=== PATIENT | female | born 1950 | race Native Hawaiian/Other Pacific Islander ===

== ENCOUNTER 2016-12-01 10:11 | Outpatient (CLI) | payer OTHER ==
[~2016-12-01 10:11] MED LIST: ALPR0.5T24 PO; AMBIEN5 MG PO; ASA LOW DOSE81 MG PO; BENADRYL25 M1 PO; DIGOXIN0.125 MG PO; DIGOXIN0.25 MG PO; DIOVAN320 MG PO; DULO60CA2 PO; FURO40TA93 PO; GABA300C2 PO; GLIM2TAB PO; HYDR-2748 PO; INSU100I2 SC; IRBESARTAN150 MG PO; JANUVIA100 MG PO; LOSA50TA PO; METO10TA26 PO; MICRO-K10 MEQ PO; NEURONTIN 100M100 MG PO; NEURONTIN800 MG PO; PACERONE200 MG PO; PRADAXA150 MG PO; PROM25TA52 PO; REQUIP1 MG PO; TEMA30CA18 PO; TIROSINT25 MCG PO; TIZA4TAB5 PO; TRAM50TA PO
[2016-12-01 10:26] LABS: PLATELET COUNT 194 K/uL (152-353)
[2016-12-01 11:37] LABS: POTASSIUM 4.1 mmol/L (3.6-5.2)
== END 2016-12-01 23:34 | disposition home or self-care (01) ==
LOC: LAB 10:11
PROVIDERS: Internal Medicine
DX: E11.9 Type 2 diabetes mellitus without complications (principal); R53.81 Other malaise
CPT/HCPCS: 80053; 80061; 80162; 81000; 83036; 84439; 84443; 85027

== ENCOUNTER 2017-03-02 13:17 | Inpatient (IN) | payer OTHER ==
[~2017-03-02] VITALS: Ht 152.4 cm; Wt 74.0 kg
[2017-03-02 16:31] VITALS: BP 159/48; TEMP 97.3; BMI 31.8
[2017-03-02 16:45] LABS: PLATELET COUNT 328 K/uL (152-353)
[2017-03-02 17:04] LABS: POTASSIUM 4.8 mmol/L (3.6-5.2)
[2017-03-02 20:00] VITALS: BP 144/50; TEMP 98.1
--- NOTE | 2017-03-02 20:49 | NUR ---
TYLENOL EXTRA STRENGTH 2 TABS GIVEN FOR HEADACHE. PT SITTING AT SIDE OF BED EATING DINNER.
--- NOTE | 2017-03-02 20:52 | NUR ---
PT TO BATHROOM. UA SPECIMENT OBTAINED.
--- NOTE | 2017-03-02 22:56 | NUR ---
PT RESTING WITH EYES CLOSED. AWAKENED WHEN NURSE IN ROOM TO HANG PIPERCILLIN. PT VOICES NO COMPLAINTS AT THIS TIME.
[2017-03-03] VITALS: BP 125/48; TEMP 99.3
[2017-03-03 04:00] VITALS: BP 115/36; TEMP 98.9
[2017-03-03 04:41] LABS: PLATELET COUNT 279 K/uL (152-353)
[2017-03-03 04:54] LABS: POTASSIUM 4.4 mmol/L (3.6-5.2)
--- NOTE | 2017-03-03 06:37 | NUR ---
PT AWAKENED FOR AM MEDICATION. PT STATES I GOT SOME GOOD REST. VOICES NO COMPLAINTS AT THIS TIME.
[2017-03-03 08:00] VITALS: BP 121/36; TEMP 98.3
[2017-03-03 12:00] VITALS: BP 132/47; TEMP 98.2
--- NOTE | 2017-03-03 15:35 | NUR ---
MRI REPORT OF FOOT SENT TO DR AYERS AWAITING ANY NEW ORDERS
--- NOTE | 2017-03-03 15:37 | NUR ---
DR JONES HERE TO SEE PATIENT MRI REPORT GIVEN TO HIM.
[2017-03-03 16:00] VITALS: BP 128/47; TEMP 98.6
--- NOTE | 2017-03-03 17:22 | NUR ---
iv site in left ac with edema noted patient c/o pain to area. site dc changed to RFA WITH 22G JELCO X2 2 ATTEMPTS
[2017-03-03 20:00] VITALS: BP 151/55; TEMP 97.6
[2017-03-04] VITALS: BP 131/43; TEMP 98.5
[2017-03-04 04:00] VITALS: BP 123/46; TEMP 98.8
[2017-03-04 04:50] LABS: PLATELET COUNT 267 K/uL (152-353)
[2017-03-04 04:58] LABS: POTASSIUM 4.5 mmol/L (3.6-5.2)
[2017-03-04 08:00] VITALS: BP 124/46; TEMP 97.8
--- NOTE | 2017-03-04 09:49 | NUR ---
PT IN SHOWER AT THIS TIME
[2017-03-04 12:00] VITALS: BP 139/57; TEMP 98.3
[2017-03-04 16:00] VITALS: BP 157/43; TEMP 98
[2017-03-04 20:00] VITALS: BP 160/44; TEMP 97.8
[2017-03-05] VITALS (11 sets, daily range): BP systolic 101–174; BP diastolic 41–57; TEMP 97.6–99.4
--- NOTE | 2017-03-05 04:46 | NUR ---
03/04/17 AT 2118PT INFORMED THAT SHE IS NPO AFTER MIDNIGHT DUE TO SURGERY IN THE MORNING, PT ACKNOWLEDGES UNDERSTANDING.
[2017-03-05 05:08] LABS: POTASSIUM 4.7 mmol/L (3.6-5.2)
[2017-03-05 05:16] LABS: PLATELET COUNT 318 K/uL (152-353)
--- NOTE | 2017-03-05 09:20 | NUR ---
ANESTHESIA IN TO TALK WITH PT ABOUT PROCEDURE.
--- NOTE | 2017-03-05 09:45 | NUR ---
PT TO OR VIA BED WITH NAD.
--- NOTE | 2017-03-05 11:35 | NUR ---
PT BACK INTO ROOM VIA BED FROM OR. PT AOX4. PT SET UP FOR FREQUENT V/S. WOUND VAC INTACT AND RUNNING AT 125MMHG.
[2017-03-06 00:16] VITALS: BP 142/44; TEMP 98.9
[2017-03-06 07:38] VITALS: BP 108/61; TEMP 98.9
[2017-03-06 09:08] LABS: PLATELET COUNT 257 K/uL (152-353)
[2017-03-06 09:15] LABS: POTASSIUM 4.8 mmol/L (3.6-5.2)
[2017-03-06 11:45] VITALS: BP 150/45; TEMP 99.3
[2017-03-06 16:00] VITALS: BP 134/67; TEMP 98.6
--- NOTE | 2017-03-06 19:21 | NUR ---
1530 Dressing to both LE's changed with normal saline and dry sterile gauze. Pressure sore noted to proximal aspect of right ankle approx. 4 cm x 4 cm. Pressure sores x 2 noted to anterior aspect of left LE. One measured 2 cm x 3 cm. The second sore measures 2 cm x 4 cm. Another sore on the lateral side of the Rt. LE measures 2.25 cm x .75 cm. All sores listed are stage 2 with nor drainage noted from wounds. Wound vac intact to Great Lt. toe and low intensity continous suction at 125 mmHg noted. Small amount of bright red drainage noted in collection chamber.
[2017-03-06 20:09] VITALS: BP 137/62; TEMP 98.1
[2017-03-07 00:24] VITALS: BP 133/58; TEMP 98.5
[2017-03-07 04:00] VITALS: BP 130/72; TEMP 98.6
[2017-03-07 04:15] LABS: PLATELET COUNT 268 K/uL (152-353)
[2017-03-07 04:20] LABS: POTASSIUM 4.9 mmol/L (3.6-5.2)
--- NOTE | 2017-03-07 07:30 | NUR ---
AM ASSESSMENT COMPLETE. WOUND VAC OFF AT THIS TIME ACCORDING TO [employer] CONSULTANT NURSE, WILL ASSESS
[2017-03-07 08:00] VITALS: BP 154/69; TEMP 98.2
--- NOTE | 2017-03-07 11:41 | NUR ---
1030 OUTERMOST FILM FROM WOUND VAC REMOVED AT THIS TIME. NO KNIKED PLACES NOTED ON TUBING. VERY SMALL PIECE OF SPONGE ABLE TO BE VISUALIZED. APPROX 1/4IN PC OF SPONGE NOTED TO LEFT TOP. SUCTION NOTED TO BE ON SKIN. SUCTION REMOVED. UNABLE TO BE RPLACED AT THIS TIME DUE TO AMT OF SPONGE VISUALIZED. WOUND NOTED TO BE DRAINING SEROSANGUINEOUS FLUID NOTED TO WOUND . WOUND COVERED WITH ABD PAD AND WRAPPED WITH LEILA. 1040 DR JONES CALLED AND REPORTED THAT WOUND VAC REPORTED TO BE TURNED OFF ON PRIOR SHIFT. EXPLAINED THAT WOUND VAC BROKE DOWN UNABLE TO RECONNECT DUE TO AMT OF SPONGE. PER MD LEAVE SPONGE IN PLACE AND KEEP COVERED UNTIL MD ARRIVES. PT INFORMED AND VERBALZIED UNDERSTANDING
[2017-03-07 11:42] VITALS: BP 142/55; TEMP 98.1
--- NOTE | 2017-03-07 14:00 | NUR ---
DR AYERS AT BS
--- NOTE | 2017-03-07 14:55 | NUR ---
PT RESTING ON L SIDE, RESP 18, NO DISTRESS NOTED. L FOOT ELEVATED ON PILLOW
[2017-03-07 16:00] VITALS: BP 150/60; TEMP 98.1
[2017-03-07 19:52] VITALS: BP 156/73; TEMP 97.7
[2017-03-08] VITALS (7 sets, daily range): BP systolic 137–156; BP diastolic 53–79; TEMP 97.8–98.3; BMI 26.0
[2017-03-08 06:11] LABS: PLATELET COUNT 278 K/uL (152-353)
[2017-03-08 06:12] LABS: POTASSIUM 4.6 mmol/L (3.6-5.2)
--- NOTE | 2017-03-08 10:24 | NUR ---
DR. JONES IN TO SEE PT'S WOUNDS. DR. JONES REMOVED WOUND VAC SPONGE FROM LEFT GREAT TOE. DR. JONES THEN PACKED WOUND WITH 4X4 NS DAMP TO DRY AND WRAPPED WITH LEILA. DR. JONES WILL TAKE PT BACK TO OR TOMORROW TO POTENTIALLY CLOSE WOUND. RIGHT ANKLE WOUND CLEANED WITH HIBILENS THEN COVERED WITH 4X4 AND WRAPPED WITH LEILA. MEASUREMENTS IN WOUND ASSESSMENT. PT TOLERATED WELL.
--- NOTE | 2017-03-08 17:00 | NUR ---
DIGOXIN ORDER BY PHYSICIAN AND HELD DUE TO AP 55.
--- NOTE | 2017-03-08 17:15 | NUR ---
MD ORDERS DIGOXIN TO BE GIVEN NOW AND STATES HE IS AWARE OF THE PT'S AP BEING 55.
--- NOTE | 2017-03-08 17:45 | NUR ---
HL TO LEFT UNDER ARM HAD SMALL AMOUNT OF EDEMA TO AREA. D/C'D
[2017-03-09] VITALS (10 sets, daily range): BP systolic 101–164; BP diastolic 42–80; TEMP 97.8–98.7
[2017-03-09 05:08] LABS: PLATELET COUNT 300 K/uL (152-353)
[2017-03-09 05:22] LABS: POTASSIUM 4.6 mmol/L (3.6-5.2); SODIUM 138 mmol/L (136-145)
--- NOTE | 2017-03-09 10:51 | NUR ---
SPOKE WITH DR JONES REGARDING BENADRYL FOR ITCHING. STATED DISCUSS WITH ANESTHESIA. ANESTHESIA STATED WOULD COME SEE PATIENT THEN OK TO GIVE BENADRYL 25MG IVP.
[2017-03-10 00:17] VITALS: BP 144/56; TEMP 98.1
[2017-03-10 04:00] VITALS: BP 157/70; TEMP 99
[2017-03-10 06:31] LABS: PLATELET COUNT 282 K/uL (152-353)
[2017-03-10 06:36] LABS: POTASSIUM 4.3 mmol/L (3.6-5.2); SODIUM 137 mmol/L (136-145)
[2017-03-10 08:00] VITALS: BP 149/49; TEMP 97.8
--- NOTE | 2017-03-10 10:18 | NUR ---
PATIENT HAD COBAN TO LEFT FOOT WAS VERT TIGHT AND PATIENT STATED IT WAS UNCOMFORTAABLE. REMOVED AND LEILA APPILED
[2017-03-10 11:37] VITALS: BP 170/55; TEMP 97.6
--- NOTE | 2017-03-10 14:04 | NUR ---
DR JONES HER REMOVED IODAFOAM TO LEFT TO AREA REPACLED BY HIM WITH SAME. CLEANED WITH HIBICLENS REAPPLED 4X4 AND SECURED WITH CLING. NO ODOR OR DRAIN AGE NOTED TO AREA
[2017-03-10 16:00] VITALS: BP 166/67; TEMP 98
--- NOTE | 2017-03-10 19:43 | NUR ---
ROUNDED ON PATIENT AT THIS TIME. PT IN BED TALKING ON TELEPHONE. TECH ALSO AT THE BEDSIDE GETTING VITAL SIGNS. SHIFT ASSESSMENT DONE AT THIS TIME. PT C/O OF ETHAN LE PAIN. PT VOICES NO OTHER COMPLAINTS. BED IS LOCKED AND IN LOWEST POSITION WITH SIDE RAILS UP X2. CALL HANDLEY IS WITHIN REACH. WILL CONTINUE TO MONITOR.
[2017-03-10 19:54] VITALS: BP 125/73; BP 160/55; TEMP 97.9
--- NOTE | 2017-03-10 20:08 | NUR ---
HYDROCODONE 5/325 PO ADMINISTERED AT THIS TIME FOR ETHAN LE PAIN 06/17. PT VOICES NO OTHER COMPLAINTS AT THIS TIME. WILL CONTINUE TO MONITOR.
--- NOTE | 2017-03-10 21:10 | NUR ---
ROUNDED ON PATIENT AT THIS TIME. PT IS IN BED AWAKE, ALERT, AND ORIENTED. PT STATES PAIN HAS DECREASED FROM PREVIOUS LEVEL OF 8/10 TO 5/10. PT VOICES NO OTHER COMPLAINTS AT THIS TIME. BED IS LOCKED AND IN LOWEST POSITION WITH SIDE RAILS UP X2. CALL HANDLEY IS WITHIN REACH. WILL CONTINUE TO MONITOR.
--- NOTE | 2017-03-10 22:11 | NUR ---
ALL SCHEDULED MEDS ADMINISTERED AT THIS TIME. PT TOLERATED WELL. PT VOICES NO COMPLAINTS AT THIS TIME. WILL CONTINUE TO MONITOR.
--- NOTE | 2017-03-11 00:11 | NUR ---
ROUNDED ON PATIENT AT THIS TIME - PATIENT SITTING UP ON SIDE OF BED. NAD NOTED. PT VOICES NO COMPLAINTS AT THIS TIME. WILL CONTINUE TO MONITOR.
[2017-03-11 00:27] VITALS: BP 145/64; TEMP 98.8
--- NOTE | 2017-03-11 03:30 | NUR ---
PT RESTING WITH EYES CLOSED. NAD NOTED. WILL CONTINUE TO MONITOR.
[2017-03-11 04:00] VITALS: BP 157/60; TEMP 98
[2017-03-11 05:25] LABS: PLATELET COUNT 299 K/uL (152-353)
[2017-03-11 06:05] LABS: POTASSIUM 4.3 mmol/L (3.6-5.2)
--- NOTE | 2017-03-11 06:25 | NUR ---
ROUNDED ON PT - PT IN BED RESTING WITH EYES CLOSED BUT IS EASILY AROUSED. NAD NOTED. PT VOICES NO COMPLAINTS. WILL CONTINUE TO MONITOR.
[2017-03-11 07:49] VITALS: BP 152/65; TEMP 97.9
[2017-03-11 12:00] VITALS: BP 159/66; TEMP 98.4
--- NOTE | 2017-03-11 14:45 | NUR ---
IV D/C'd. NO REDNESS OR EDEMA OBSERVED. DISCHARGE INSTRUCTION SIGNED AND GIVEN. Pt. EXIT OUT OF ER ENTRANCE VIA W/C.
== END 2017-03-11 14:45 | disposition home or self-care (01) | DRG 617 ==
LOC: MRI 13:17 → MED/SURG 15:11 → UNDODEPCLI 03-03 22:40 → MED/SURG 03-11 14:45
PROVIDERS: Emergency Medicine; Internal Medicine; ADMIT Internal Medicine
PROC: 0JBQ0ZZ Excision of Right Foot Subcutaneous Tissue and Fascia, Open Approach (ICD-10-PCS; principal; 2017-03-05)
PROC: 0Y6Q0Z0 Detachment at Left 1st Toe, Complete, Open Approach (ICD-10-PCS; 2017-03-05)
PROC: 0JDR3ZZ Extraction of Left Foot Subcutaneous Tissue and Fascia, Percutaneous Approach (ICD-10-PCS; 2017-03-09)
DX: E11.69 Type 2 diabetes mellitus with other specified complication (principal); M86.172 Other acute osteomyelitis, left ankle and foot; L97.319 Non-pressure chronic ulcer of right ankle with unspecified severity; E11.621 Type 2 diabetes mellitus with foot ulcer; L97.529 Non-pressure chronic ulcer of other part of left foot with unspecified severity; I12.9 Hypertensive chronic kidney disease with stage 1 through stage 4 chronic kidney disease, or unspecified chronic kidney disease; N18.3 Chronic kidney disease, stage 3 (moderate); I73.89 Other specified peripheral vascular diseases; I48.2 Chronic atrial fibrillation; Z79.01 Long term (current) use of anticoagulants; E83.42 Hypomagnesemia; J44.9 Chronic obstructive pulmonary disease, unspecified; M15.8 Other polyosteoarthritis; Z79.4 Long term (current) use of insulin
CPT/HCPCS: 36415; 80048; 80053; 80162; 80202; 81000; 82948; 83735; 85027; 85651; 86140; 87070; 87077; 87186; 87205; 93005; 96372; J0744; J1170; J1200; J1644; J2001; J2250; J2270; J2543; J2704; J3010

== ENCOUNTER 2017-03-26 15:10 | Inpatient (IN) | payer OTHER ==
[~2017-03-26] VITALS: Ht 152.4 cm; Wt 66.4 kg
[2017-03-26 17:08] LABS: PLATELET COUNT 218 K/uL (152-353)
[2017-03-26 17:46] LABS: POTASSIUM 4.4 mmol/L (3.6-5.2)
[2017-03-26 20:00] VITALS: BP 145/68; TEMP 98.6
[2017-03-26 20:05] VITALS: BP 129/40; TEMP 97.8; Ht 152.4 cm; Wt 66.4 kg
[2017-03-27] VITALS: BP 128/48; TEMP 98.5
[2017-03-27 04:00] VITALS: BP 142/48; TEMP 97.8
[2017-03-27 07:53] LABS: PLATELET COUNT 176 K/uL (152-353)
[2017-03-27 08:00] VITALS: BP 126/49; TEMP 97.8
[2017-03-27 12:17] VITALS: BP 156/48; TEMP 97.9
[2017-03-27 16:21] VITALS: BP 143/44; TEMP 98.6
[2017-03-27 20:00] VITALS: BP 146/50; TEMP 98.8
[2017-03-28] VITALS (7 sets, daily range): BP systolic 121–187; BP diastolic 45–86; TEMP 97.6–98.9
[2017-03-28 07:12] LABS: PLATELET COUNT 186 K/uL (152-353)
[2017-03-28 07:17] LABS: POTASSIUM 4.2 mmol/L (3.6-5.2)
[2017-03-29 04:00] VITALS: BP 102/48; TEMP 98.8
[2017-03-29 06:13] LABS: PLATELET COUNT 201 K/uL (152-353)
[2017-03-29 06:28] LABS: POTASSIUM 4.4 mmol/L (3.6-5.2)
[2017-03-29 07:59] VITALS: BP 118/49; BP 149/64; TEMP 98.2
[2017-03-29 12:00] VITALS: BP 111/57; TEMP 98.1
[2017-03-29 16:00] VITALS: BP 149/50; TEMP 98.4
== END 2017-03-29 17:30 | disposition home or self-care (01) | DRG 552 ==
LOC: MED/SURG 15:10
PROVIDERS: Emergency Medicine; ADMIT Student in an Organized Health Care Education/Training Program
DX: S22.071A Stable burst fracture of T9-T10 vertebra, initial encounter for closed fracture (principal); W10.8XXA Fall (on) (from) other stairs and steps, initial encounter; Z91.81 History of falling; Y93.89 Activity, other specified; Y92.89 Other specified places as the place of occurrence of the external cause; D64.89 Other specified anemias; E11.9 Type 2 diabetes mellitus without complications; Z79.4 Long term (current) use of insulin; R60.0 Localized edema; E88.09 Other disorders of plasma-protein metabolism, not elsewhere classified; I48.91 Unspecified atrial fibrillation; I10 Essential (primary) hypertension; K21.9 Gastro-esophageal reflux disease without esophagitis
CPT/HCPCS: 36415; 80048; 80053; 80162; 82272; 82550; 82570; 82948; 83605; 83735; 83880; 84300; 84443; 84484; 84560; 85027; 87040; 93005; 94640; 94664; 94760; 96372; J1885; J1956; J2360; J2550; J3490

== ENCOUNTER 2017-04-08 16:53 | Outpatient (CLI) | payer OTHER ==
[2017-04-08 17:20] LABS: POTASSIUM 4.9 mmol/L (3.6-5.2)
== END 2017-04-08 19:21 | disposition home or self-care (01) ==
LOC: LAB 16:53
PROVIDERS: Internal Medicine Cardiovascular Disease
DX: I10 Essential (primary) hypertension (principal); M79.89 Other specified soft tissue disorders
CPT/HCPCS: 80048; 83880

== ENCOUNTER 2017-04-09 11:02 | Outpatient (CLI) | payer OTHER | END 2017-04-09 12:15 | disposition home or self-care (01) | LOC: US 11:02 → LAB 11:02 → US 12:15 | DX: I10 Essential (primary) hypertension (principal); I50.9 Heart failure, unspecified; E11.9 Type 2 diabetes mellitus without complications | CPT/HCPCS: 83880 ==

== ENCOUNTER 2017-06-03 14:32 | Outpatient (CLI) | payer OTHER ==
[2017-06-07] MEDS ORDERED: GABA300C2 PO (12:37)
[2017-06-07] MEDS ORDERED: FERROUS SULF325 MG PO (12:38)
[2017-06-07] MEDS ORDERED: FERROUS SULF325 M1 PO (12:38)
[2017-06-07] MEDS ORDERED: GRALISE600 MG PO (12:38)
[2017-06-07] MEDS ORDERED: BUMETANIDE1 MG PO (12:39)
[2017-06-07] MEDS ORDERED: POT CHLORIDE10 MEQ PO (12:39)
[2017-06-07] MEDS ORDERED: HYDR-3182 PO (12:41)
[2017-06-07] MEDS ORDERED: AMIODARONE HCL100 MG PO (12:42)
[2017-06-07] MEDS ORDERED: TIROSINT75 MCG PO (12:43)
== END 2017-06-03 14:42 | disposition short-term general hospital (02) ==
LOC: AMB 14:32
DX: R41.82 Altered mental status, unspecified (principal)
CPT/HCPCS: A0425; A0429

== ENCOUNTER 2017-06-14 12:11 | Outpatient (CLI) | payer OTHER ==
[~2017-06-14 12:11] MED LIST changes: +AMIODARONE HCL100 MG PO; +BUMETANIDE1 MG PO; +FERROUS SULF325 M1 PO; +FERROUS SULF325 MG PO; +GRALISE600 MG PO; +HYDR-3182 PO; +POT CHLORIDE10 MEQ PO; +TIROSINT75 MCG PO
== END 2017-06-14 13:18 | disposition short-term general hospital (02) ==
LOC: AMB 12:11
DX: A41.89 Other specified sepsis (principal); J18.8 Other pneumonia, unspecified organism; I21.4 Non-ST elevation (NSTEMI) myocardial infarction; I50.23 Acute on chronic systolic (congestive) heart failure; N39.0 Urinary tract infection, site not specified; M62.82 Rhabdomyolysis; N17.8 Other acute kidney failure; B95.2 Enterococcus as the cause of diseases classified elsewhere; R55 Syncope and collapse; E11.9 Type 2 diabetes mellitus without complications; I10 Essential (primary) hypertension; K14.0 Glossitis; L98.8 Other specified disorders of the skin and subcutaneous tissue; B95.61 Methicillin susceptible Staphylococcus aureus infection as the cause of diseases classified elsewhere
CPT/HCPCS: A0425; A0427

== ENCOUNTER 2017-09-07 14:34 | Inpatient (IN) | payer OTHER ==
[2017-09-08 12:00] LABS: PLATELET COUNT 165 K/uL (152-353)
[2017-09-08 12:36] LABS: POTASSIUM 3.4 mmol/L (3.6-5.2)
== END 2017-09-08 13:05 | disposition still patient (30) ==
LOC: PAVB 14:34
PROVIDERS: ADMIT Internal Medicine
DX: M62.81 Muscle weakness (generalized) (principal); R13.12 Dysphagia, oropharyngeal phase; R26.9 Unspecified abnormalities of gait and mobility; Z87.440 Personal history of urinary (tract) infections
CPT/HCPCS: 80053; 83036; 83540; 84443; 85027; 87081

== ENCOUNTER 2017-09-08 14:16 | Inpatient (IN) | payer OTHER ==
[2017-09-22] MEDS ORDERED: ASCO500T18 PO (16:13)
[2017-09-22] MEDS ORDERED: MULTIVITAMI1 OR (16:13)
[2017-09-22] MEDS ORDERED: ZINC220C4 PO (16:14)
[2017-09-22] MEDS ORDERED: MELATONIN10 M2 PO (16:15)
[2017-09-22] MEDS ORDERED: CELEXA40 MG PO (16:16)
[2017-09-22] MEDS ORDERED: PROBIOTIC1 TAB PO (16:17)
[2017-09-22] MEDS ORDERED: GABA100C2 PO (16:17)
[2017-09-22] MEDS ORDERED: LEVO0.0723 PO (16:18)
[2017-09-22] MEDS ORDERED: LOSA50TA PO (16:18)
[2017-09-22] MEDS ORDERED: REQUIP1 MG OR (16:19)
[2017-09-22] MEDS ORDERED: ASPI325T40 PO (16:20)
[2017-09-22] MEDS ORDERED: DOCU100C10 PO (16:20)
[2017-09-22] MEDS ORDERED: FERROUS SULF325 MG PO (16:21)
[2017-09-22] MEDS ORDERED: LACTSYP31 PO (16:22)
[2017-09-22] MEDS ORDERED: TRAM50TA PO (16:22)
[2017-09-22] MEDS ORDERED: HYDR25CA25 PO (16:23)
[2017-09-22] MEDS ORDERED: TYLENOL325 MG OR (16:24)
[2017-09-22] MEDS ORDERED: CLON0.5T36 PO (16:24)
[2017-09-23] MEDS ORDERED: [UNRECOGNIZED DRUG - SUPPLY] EX (11:31)
[2017-09-23] MEDS ORDERED: [UNRECOGNIZED DRUG - SUPPLY] (11:45)
[2017-09-23] MEDS ORDERED: TRIPLE ANTIBIOT EX (11:46)
== END 2017-10-08 10:32 | disposition still patient (30) ==
LOC: PAVC 14:16 → PAVB 14:16 → PAVC 14:16
PROVIDERS: ADMIT Internal Medicine
CPT/HCPCS: 36415; 80053; 81000; 83036; 83540; 84443; 85014; 85018; 85027; 87077; 87081; 87086; 87088; 87186

== ENCOUNTER 2017-09-20 10:29 | Outpatient (CLI) | payer OTHER | END 2017-09-20 12:00 | disposition home or self-care (01) | LOC: MAMMO 10:29 | DX: N64.59 Other signs and symptoms in breast (principal) ==

== ENCOUNTER 2017-10-08 11:04 | Inpatient (IN) | payer OTHER ==
[~2017-10-08 11:04] MED LIST changes: +ASCO500T18 PO; +ASPI325T40 PO; +CELEXA40 MG PO; +CLON0.5T36 PO; +DOCU100C10 PO; +GABA100C2 PO; +HYDR25CA25 PO; +LACTSYP31 PO; +LEVO0.0723 PO; +MELATONIN10 M2 PO; +MULTIVITAMI1 OR; +PROBIOTIC1 TAB PO; +REQUIP1 MG OR; +TRIPLE ANTIBIOT EX; +TYLENOL325 MG OR; +ZINC220C4 PO; +[UNRECOGNIZED DRUG - SUPPLY]; +[UNRECOGNIZED DRUG - SUPPLY] EX
== END 2017-11-08 01:00 | disposition expired ==
LOC: PAVC 11:04
PROVIDERS: ADMIT Internal Medicine
CPT/HCPCS: 82272

== ENCOUNTER 2017-10-14 14:29 | Outpatient (CLI) | payer OTHER ==
[2017-10-14 15:02] LABS: POTASSIUM 4.2 mmol/L (3.6-5.2)
[2017-10-14 15:07] LABS: PLATELET COUNT 117 K/uL (152-353)
== END 2017-10-14 19:12 | disposition home or self-care (01) ==
LOC: LAB 14:29
PROVIDERS: Internal Medicine
DX: N18.9 Chronic kidney disease, unspecified (principal); R06.02 Shortness of breath; Z53.8 Procedure and treatment not carried out for other reasons
CPT/HCPCS: 36415; 80048; 83880; 85027; J1642

== ENCOUNTER 2017-10-19 05:34 | Outpatient (CLI) | payer OTHER | END 2017-10-19 19:23 | disposition home or self-care (01) | LOC: LAB 05:34 | DX: D64.89 Other specified anemias (principal); R19.7 Diarrhea, unspecified | CPT/HCPCS: 85014; 85018; 87015; 87045; 87324; 87328; 87329; 87449; 87899 ==

== ENCOUNTER 2017-10-26 10:49 | Outpatient (CLI) | payer OTHER | END 2017-10-26 18:02 | disposition home or self-care (01) | LOC: LAB 10:49 | DX: D64.89 Other specified anemias (principal) | CPT/HCPCS: 36415; 85014; 85018 ==

== ENCOUNTER 2017-11-02 03:00 | Outpatient (CLI) | payer OTHER | END 2017-11-02 19:28 | disposition home or self-care (01) | LOC: LAB 03:00 | DX: D50.8 Other iron deficiency anemias (principal) | CPT/HCPCS: 36415; 85014; 85018 ==

== ENCOUNTER 2017-11-08 01:00 | Outpatient (CLI) | payer OTHER | END 2017-11-08 01:15 | disposition E | LOC: AMB 01:00 | DX: I46.9 Cardiac arrest, cause unspecified (principal) ==

== ENCOUNTER 2017-11-08 01:30 | Emergency (ER) | payer OTHER | END 2017-11-08 02:54 | disposition E | LOC: ED 01:30 | DX: I46.9 Cardiac arrest, cause unspecified (principal) ==